=== PATIENT | male | born 1995 | race Caucasian/White ===

== ENCOUNTER 2022-10-18 07:28 | Emergency (ER) | payer OTHER ==
[~2022-10-18] VITALS: Ht 167.6 cm; Wt 91.0 kg
[2022-10-18] MEDS ORDERED: IBUPROFEN 600MG TABLET PO NR (09:15)
[2022-10-18 10:24] VITALS: BP 130/74
[2022-10-18] MEDS ORDERED: IBUP-2029 MT (11:58)
== END 2022-10-18 12:08 | disposition home or self-care (01) ==
LOC: ER 07:28
DX: M79.661 Pain in right lower leg (principal); E78.00 Pure hypercholesterolemia, unspecified; Z13.9 Encounter for screening, unspecified
CPT/HCPCS: 93971; 99284